=== PATIENT | male | born 1985 | race African-American/Black ===

== ENCOUNTER 2024-07-07 19:16 | Emergency (ER) | payer MEDICAID, OTHER ==
[~2024-07-07] VITALS: Ht 175.3 cm; Wt 72.4 kg
--- NOTE | 2024-07-07 20:44 | DVH ---
CLINICAL INDICATION: left hip pain TECHNIQUE: 3 radiographic views of the left hip were obtained. Comparison: None FINDINGS/IMPRESSION: There is no evidence of acute fracture or dislocation. The visualized joint space is well maintained. The alignment is anatomical. There is no radiopaque foreign body. HS:Y
[2024-07-07 20:54] VITALS: BP 141/87; PULSE 96; RESP 19; TEMP 98.2; O2SAT 95
--- NOTE | 2024-07-07 21:05 | DVH ---
LEFT lower extremity venous duplex Clinical History: left leg pain Comparison: None Technique: Duplex Doppler evaluation of the deep venous systems of LEFT lower extremities from the common femora l veins to the popliteal veins including color Doppler and spectral/pulsed waveform analysis was perf ormed. Findings: LEFT SIDE: The common femoral vein demonstrates appropriate compressibility and waveform variability. There is compressibility/patency of the great saphenous vein at the proximal thigh. The femoral vein demonstrates appropriate compressibility and waveform variability. The deep femoral vein demonstrates appropriate compressibility and waveform variability. The popliteal vein demonstrates appropriate compressibility and waveform variability. There is normal compressibility at the tibioperoneal trunk. Impression: 1. No left femoropopliteal venous thrombosis. HS:Y
[2024-07-07] MEDS ORDERED: CYCL-614 PO (21:11)
[2024-07-07] MEDS ORDERED: IBUP-1456 PO (21:11)
--- NOTE | 2024-07-07 21:11 | ED.PDOC ---
Musculoskeletal HPI Comments 38-year-old male presents to ER with complaints of left hip pain x5 days. Patient reports he started experiencing unprovoked pain to left hip x5 days. He rates his current pain a 10/10 to left hip with radiation towards the left buttock and down posterior left leg. Denies use of medications for current symptoms. States he is concerned about a DVT to left leg because he does have history of a DVT in his left leg four years ago. Patient presents to ER ambulatory on arrival, favoring right leg on ambulation. Denies fever, body aches, chills, trauma/falls, shortness of breath, calf pain, numbness/tingling or any further symptoms/complaints Chief Complaint: Lower Extremity Time Seen by MD: 19:18 Primary Care Provider: UNKNOWN Reviewed Notes: Nurses Notes, Medications, Allergies Allergies: Coded Allergies: NO KNOWN ALLERGIES (Unverified , 07/07/24) Home Meds Active Scripts Cyclobenzaprine HCl (Cyclobenzaprine Hydrochlo) 5 Mg Tab, 5 MG PO QHSP, #14 TAB 0 Refills Prov:KEREN JIMÉNEZ 07/07/24 Ibuprofen (Ibuprofen) 800 Mg Tab, 1 TAB PO TID PRN, #30 TAB 0 Refills Prov:KEREN JIMÉNEZ 07/07/24 Information Source: Patient Mode of Arrival: Wheelchair Past Medical History PAST MEDICAL HISTORY: HTN Past Medical History (Other): DVT Surgical History: Denies all surgeries Family History Family History: Unknown Social History Smoker: Non-Smoker Alcohol: Denies ETOH Use Drugs: Denies Drug Use Lives In: Home Constitutional: denies: chills, diaphoresis, fatigue, fever, malaise, sweats, weakness, others EENTM: denies: blurred vision, double vision, ear bleeding, ear discharge, ear drainage, ear pain, ear ringing, eye pain, eye redness, hearing loss, mouth pain, mouth swelling, nasal discharge, nose bleeding, nose congestion, nose pain, photophobia, tearing, throat pain, throat swelling, voice changes, others Respiratory: denies: cough, hemoptysis, orthopnea, SOB at rest, shortness of breath, SOB with excertion, stridor, wheezing, others Cardiovascular: denies: chest pain, dizzy spells, diaphoresis, Dyspnea on exertion, edema, irregular heart beat, left arm pain, lightheadedness, palpitations, PND, syncope, others Gastrointestinal: denies: abdomen distended, abdominal pain, blood streaked bowels, constipated, diarrhea, dysphagia, difficulty swallowing, hematemesis, melena, nausea, poor appetite, poor fluid intake, rectal bleeding, rectal pain, vomiting, others Genitourinary: denies: burning, dysuria, flank pain, frequency, hematuria, incontinence, penile discharge, penile sore, pain, testicle pain, testicle swelling, urgency, others Neurological: denies: dizziness, fainting, headache, left sided numbness, left sided weakness, numbness, paresthesia, pre-existing deficit, right sided numbness, right sided weakness, seizure, speech problems, tingling, tremors, weakness, others Musculoskeletal: reports: others (As stated in HPI) Integumetry: denies: bruises, change in color, change in hair/nails, dryness, laceration, lesions, lumps, rash, wounds, others Allergic/Immunocompromised: denies: Difficulty Healing, Frequent Infections, Hives, Itching, others Hematologic/Lymphatic: denies: anemia, blood clots, easy bleeding, easy bruising, swollen glands, others Endocrine: denies: excessive hunger, excessive sweating, excessive thirst, excessive urination, flushing, intolerance to cold, intolerance to heat, unexplained weight gain, unexplained weight loss, others Psychiatric: denies: anxiety, bipolar disorder, depression, hopeless, panic disorder, schizophrenia, sleepless, suicidal, others Physical Exam General Appearance: Mild Distress (Patient favors right leg on ambulation due to pain localized to left hip and centralized to left buttock) HEENT: PERRL/EOMI Neck: Full Range of Motion, Non-Tender, Normal Respiratory: Chest Non-Tender, Lungs Clear, No Accessory Muscle Use, No Respiratory Distress, Normal Breath Sounds Cardiovascular: No Murmur, No Gallop, Regular Rate/Rhythm Breast Exam: Deferred Gastrointestinal: Non Tender, No Pulsatile Mass, Soft Genitalia: Deferred Pelvic: Deferred Rectal: Deferred Extremities: No calf tenderness, Normal capillary refill Musculoskeletal : Extremity Location: Hip (Slight be to left hip and centralized to left buttock noted. No skin changes noted. Patient favors right leg on ambulation due to pain localized to left hip and centralized to left buttock. 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 Was a procedure done?: No Sedation Sedation?: No Differential Diagnosis EXT Differential Diagnosis: Deep Vein Thrombosis, Fracture, Dislocation, Neurovascular injury X-Ray, Labs, Meds, VS Vital Signs Date Time Temp Pulse Resp B/P (MAP) Pulse Ox O2 Delivery O2 Flow Rate FiO2 07/07/24 20:54 96 19 95 Room Air 07/07/24 20:54 98.2 96 19 141/87 (105) 95 98.2 07/07/24 19:48 98.2 96 19 141/87 (105) 95 PATIENT: DAMARI GARCIA MERONCT: [id number] UNIT: [id number] : 1985 LOC: ER ROOM / BED: / AGE / SEX: 38 / M ADM STATUS: REG ER SERVICE 58 ORDERING PHYSICIAN: KEREN JIMÉNEZ PROCEDURE(s): LHIP - L HIP COMPLETE XRAY REASON: left hip pain ORDER NUMBER(s): [id number], ACCESSION NUMBER(s): [id number] CLINICAL INDICATION: left hip pain TECHNIQUE: 3 radiographic views of the left hip were obtained. Comparison: None FINDINGS/IMPRESSION: There is no evidence of acute fracture or dislocation. The visualized joint space is well maintained. The alignment is anatomical. There is no radiopaque foreign body. HS:Y ATED BY: KAROL BRUNNER Jr., DO DICTATED DATE/TIME: 07/07/242040 SIGNED BY: KAROL BRUNNER Jr., SIGNED DATE/TIME: 07/07/242040 CC: PATIENT: DAMARI GARCIA MERONCT: [id number] UNIT: [id number] : 1985 LOC: ER ROOM / BED: / AGE / SEX: 38 / M ADM STATUS: REG ER SERVICE 58 ORDERING PHYSICIAN: KEREN JIMÉNEZ PROCEDURE(s): LLDVT - LT Lower DVT REASON: left leg pain ORDER NUMBER(s): [id number], ACCESSION NUMBER(s): [id number] LEFT lower extremity venous duplex Clinical History: left leg pain Comparison: None Technique: Duplex Doppler evaluation of the deep venous systems of LEFT lower extremities from the common femoral veins to the popliteal veins including color Doppler and spectral/pulsed waveform analysis was performed. Findings: LEFT SIDE: The common femoral vein demonstrates appropriate compressibility and waveform variability. There is compressibility/patency of the great saphenous vein at the proximal thigh. The femoral vein demonstrates appropriate compressibility and waveform variability. The deep femoral vein demonstrates appropriate compressibility and waveform variability. The popliteal vein demonstrates appropriate compressibility and waveform variability. There is normal compressibility at the tibioperoneal trunk. Impression: 1. No left femoropopliteal venous thrombosis. HS:Y ATED BY: KAROL BRUNNER Jr., DO DICTATED DATE/TIME: 07/07/242101 SIGNED BY: KAROL BRUNNER Jr., SIGNED DATE/TIME: 07/07/242101 CC: Left hip x-ray reviewed Left lower DVT ultrasound reviewed Toradol 60 mg IM ordered Patient neurovascularly intact and reported improvement in symptoms prior to discharge Advised on rest/no strenuous activity Advised to follow up with PCP in 1-2 days Patient verbalized understanding and agreeable with current plan of care Advised to return to ER immediately if symptoms worsen Images Reviewed?: Images reviewed and evaluated by me Time of 1ST Reevaluation: 20:44 Reevaluation 1ST: N/A Patient Education/Counseling: Diagnosis, Treatment, Prognosis, Need For Follow Up Family Education/Counseling: No Family Present Departure 1 Departure Time of Disposition: 21:10 Impression: Primary Impression: Sciatica, left side Additional Impression: Left hip pain Disposition: 01 HOME / SELF CARE / HOMELESS Condition: Stable e-Prescriptions Cyclobenzaprine HCl (Cyclobenzaprine Hydrochlo) 5 Mg Tab 5 MG PO QHSP, #14 TAB 0 Refills Prov: KEREN JIMÉNEZ 07/07/24 Ibuprofen (Ibuprofen) 800 Mg Tab 1 TAB PO TID PRN, #30 TAB 0 Refills Prov: KEREN JIMÉNEZ 07/07/24 Discharged With: Friend Critical Care Note Critical Care Time?: No Stability Stability form required: No Heart Score Heart Score: Heart Score Response (Comments) Value History N/A 0 EKG N/A 0 Age N/A 0 Risk Factors N/A 0 Troponin N/A 0 Total 0 KEREN JIMÉNEZ Jul 07, 2024 21:11
[2024-07-07] MEDS: KETOROLAC TROMETH 60MG/2ML VIAL IM ONE (21:18)
== END 2024-07-07 21:45 | disposition home or self-care (01) ==
LOC: ER 19:16
DX: M54.32 Sciatica, left side (principal); M25.552 Pain in left hip; I10 Essential (primary) hypertension; Z86.718 Personal history of other venous thrombosis and embolism
CPT/HCPCS: 73502; 93971; 96372; 99285; J1885